=== PATIENT | female | born 1960 | race Hispanic/Latino ===

== ENCOUNTER 2018-05-27 13:38 | Emergency (ER) | payer OTHER ==
[2018-05-27] MEDS ORDERED: LIDOCAINE HCL 1% 20 ML VIAL ONE (14:17)
[2018-05-27] MEDS ORDERED: TETANUS/DIPHTHERIA TOXOID [ADULT] 0.5 ML VIAL IM ONE (14:18)
== END 2018-05-27 15:14 | disposition home or self-care (01) ==
LOC: EDH 13:38
DX: S61.011A Laceration without foreign body of right thumb without damage to nail, initial encounter (principal); E11.9 Type 2 diabetes mellitus without complications; E78.5 Hyperlipidemia, unspecified; I10 Essential (primary) hypertension; Z79.4 Long term (current) use of insulin; W26.8XXA Contact with other sharp object(s), not elsewhere classified, initial encounter; Y93.89 Activity, other specified; Y92.098 Other place in other non-institutional residence as the place of occurrence of the external cause; Y99.8 Other external cause status
CPT/HCPCS: 12042; 73130; 90471; 90714

== ENCOUNTER 2021-10-26 16:07 | Inpatient (IN) | payer OTHER ==
[~2021-10-26] VITALS: Ht 152.4 cm; Wt 49.0 kg
[~2021-10-26 16:07] MED LIST: AMOX-427 PO
[2021-10-26] MEDS ORDERED: 0.9%NACL 1000ML 1,000 ML IV ONE (16:30)
[2021-10-26 16:49] LABS: APPEARANCE,URINE CLEAR (CLEAR); BILIRUBIN,URINE NEGATIVE (NEGATIVE); COLOR,URINE YELLOW (YELLOW); GLUCOSE, URINE (UA) >=1000 mg/dL (NEGATIVE); KETONES,URINE NEGATIVE (NEGATIVE); LEUKOCYTE ESTERASE ,URINE NEGATIVE (NEGATIVE); NITRATE,URINE NEGATIVE (NEGATIVE); OCCULT BLOOD,URINE SMALL (NEGATIVE); PH,URINE 6.5 (5.0-8.0); PROTEIN,URINE 30 mg/dL (NEGATIVE)
[2021-10-26 16:58] LABS: BASOPHILS % (AUTO) 0.4 % (0.0-5.0); EOSINOPHILS % (AUTO) 2.3 % (0.0-8.0); HEMATOCRIT 29.7 % (36-48); LYMPHOCYTES % (AUTO) 11.9 % (21.0-51.0); MEAN CORPUSCULAR HEMOGLOBIN 27.6 pg (27.0-33.0); MEAN CORPUSCULAR VOLUME 83.7 fL (79-99); MONOCYTES % (AUTO) 6.7 % (3.0-13.0); NEUTROPHILS % (AUTO) 77.8 % (40.0-77.0); PLATELET COUNT (AUTO) 478 K/uL (130-400); RED BLOOD CELL COUNT(AUTO) 3.55 MIL/uL (4.00-5.50); RED CELL DISTRIBUTION WIDTH 11.9 % (11.0-15.5); WHITE BLOOD COUNT (AUTO) 9.1 K/uL (4.8-10.8)
[2021-10-26 17:16] LABS: BACTERIA,URINE Few /HPF (None Seen); WBC,URINE 0-1 /HPF (0-1)
[2021-10-26 17:18] LABS: SQUAMOUS EPITHELIAL CELL,UR Few /HPF (0-2); YEAST,URINE BUDDING Few /HPF (None Seen)
[2021-10-26 17:23] LABS: ALBUMIN 2.5 g/dL (3.5-5.0); CREATININE 0.6 mg/dL (0.5-1.5); POTASSIUM 3.9 mmol/L (3.5-5.1); TOTAL PROTEIN, SERUM 8.2 g/dL (6.0-8.3)
[2021-10-26] MEDS ORDERED: VANCOMYCIN KIT 1 GM/250 ML IV.KIT IV ONE (17:30)
[2021-10-26] MEDS ORDERED: INSULIN HUMULIN R 100 UNIT/ML 3ML IV ONE (17:30)
[2021-10-26] MEDS ORDERED: ZOSYN 3.375GM +NS 50ML IV ONE (17:30)
[2021-10-26 18:05] LABS: ERYTHROCYTE SEDIMENTATION RATE 138 MM/HR (0-30)
[2021-10-26] MEDS ORDERED: ATOR40TA69 PO (18:51)
[2021-10-26] MEDS ORDERED: ASPI-1005 PO (18:51)
[2021-10-26] MEDS ORDERED: LISI10TA24 PO (18:51)
[2021-10-26] MEDS ORDERED: GLIP10TA9 PO (18:51)
[2021-10-26] MEDS ORDERED: SITA1TAB6 PO (18:52)
[2021-10-26] MEDS ORDERED: NITROGLYCERIN 0.4 MG SL TAB SL PRN (20:30)
[2021-10-26] MEDS ORDERED: VANCOMYCIN PROTOCOL PER PHARMACY IV PRN (20:30)
[2021-10-26] MEDS ORDERED: ONDANSETRON 4MG INJ IV PRN (20:30)
[2021-10-26] MEDS: VANCOMYCIN 750MG VIAL IVPB SCH ×2 (20:30→20:31)
[2021-10-26] MEDS: 0.9% NACL 250ML 250 ML IV SCH (20:31)
[2021-10-26] MEDS: 0.9%NACL 1000ML 1,000 ML IV SCH (21:13)
[2021-10-26] MEDS: FAMOTIDINE 20MG TAB PO SCH (21:13)
[2021-10-26 22:01] VITALS: BP 154/89
[2021-10-26 22:14] LABS: INR 0.95 (0.85-1.15); PROTHROMBIN TIME 10.4 SEC (9.6-11.6)
[2021-10-26 22:16] LABS: PARTIAL THROMBOPLASTIN TIME 29.7 SEC (26.3-35.5)
[2021-10-26] MEDS: LISINOPRIL 10 MG TABLET PO SCH (23:29)
[2021-10-27] VITALS (20 sets, daily range): BP systolic 130–170; BP diastolic 62–86
[2021-10-27] MEDS ORDERED: LIDOCAINE HCL 1% 20 ML VIAL INJ ONE
[2021-10-27] MEDS: VANCOMYCIN 750MG VIAL IVPB SCH ×2 (04:18→18:56)
[2021-10-27 04:23] LABS: BASOPHILS % (AUTO) 0.3 % (0.0-5.0); HEMATOCRIT 24.9 % (36-48); LYMPHOCYTES % (AUTO) 18.5 % (21.0-51.0); MEAN CORPUSCULAR HEMOGLOBIN 27.5 pg (27.0-33.0); MEAN CORPUSCULAR HGB CONC 33.3 g/dL (32.0-36.0); MEAN CORPUSCULAR VOLUME 82.5 fL (79-99); MONOCYTES % (AUTO) 7.8 % (3.0-13.0); NEUTROPHILS % (AUTO) 68.7 % (40.0-77.0); PLATELET COUNT (AUTO) 416 K/uL (130-400); RED BLOOD CELL COUNT(AUTO) 3.02 MIL/uL (4.00-5.50); RED CELL DISTRIBUTION WIDTH 12.1 % (11.0-15.5); WHITE BLOOD COUNT (AUTO) 9.4 K/uL (4.8-10.8)
[2021-10-27 04:26] LABS: % IRON SATURATION 29.3 % (22-44)
[2021-10-27 04:31] LABS: ALBUMIN 1.9 g/dL (3.5-5.0); ASPARTATE AMINOTRANSFERASE 15 U/L (10-37); CARBON DIOXIDE 30 mmol/L (21-32); CHLORIDE 99 mmol/L (101-111); CREATININE 0.5 mg/dL (0.5-1.5); GLOMERULAR FILTR. RATE CALC 134 mL/min (>60); GLUCOSE,RANDOM 290 mg/dL (70-105); POTASSIUM 3.8 mmol/L (3.5-5.1); SODIUM SERUM 133 mmol/L (136-145); TOTAL PROTEIN, SERUM 6.4 g/dL (6.0-8.3); UREA NITROGEN, BLOOD 8 mg/dL (7-18)
[2021-10-27 04:35] LABS: ALANINE AMINOTRANSFERASE < 6 U/L (12-78)
[2021-10-27] MEDS: 0.9%NACL 1000ML 1,000 ML IV SCH ×2 (06:30→18:22)
[2021-10-27] MEDS: ACETAMINOPHEN 325 MG TAB PO PRN ×2 (06:30→21:50)
[2021-10-27] MEDS: ZOSYN 3.375GM+NS 50ML 50 ML IV SCH ×3 (06:50→21:34)
[2021-10-27] MEDS: INSULIN HUMULIN R 100 UNIT/ML 3ML SQ SCH ×4 (07:18→21:43)
[2021-10-27] MEDS ORDERED: DEXTROSE 50%-WATER 50 ML DISP.SYRIN IV PRN (07:30)
[2021-10-27] MEDS ORDERED: GLUCAGON 1MG KIT 1 MG ML IM PRN (07:30)
[2021-10-27] MEDS: FAMOTIDINE 20MG TAB PO SCH ×2 (09:00→21:00)
[2021-10-27] MEDS: ENOXAPARIN SODIUM 30 MG/0.3 ML SQ SCH (09:00)
[2021-10-27] MEDS: LISINOPRIL 10 MG TABLET PO SCH (09:15)
[2021-10-27] MEDS: AMLODIPINE 5 MG TAB PO SCH ×2 (10:11→21:34)
[2021-10-27] MEDS ORDERED: MIDAZOLAM HCL 1 MG/ML 2ML VIAL ONE (15:41)
[2021-10-27] MEDS ORDERED: PROPOFOL 10 MG/ML 20ML VIAL IV ONE (15:41)
[2021-10-27] MEDS ORDERED: FENTANYL CITRATE PF 50 MCG/1 ML 2ML VIAL ONE ×2 (15:41→17:13)
[2021-10-27] MEDS ORDERED: PHENYLEPHRINE HCL 10 MG/ML 1ML VIAL IV ONE (15:42)
[2021-10-27] MEDS ORDERED: BUPIVACAINE/PF 0.5% 30ML VIAL ONE (16:46)
[2021-10-27] MEDS ORDERED: LIDOCAINE HCL 1% 10 ML VIAL ONE (16:46)
[2021-10-27] MEDS ORDERED: LIDOCAINE HCL-MPF 2% 5ML VIAL INJ ONE (17:12)
[2021-10-27] MEDS ORDERED: BUPIVACAINE/EPI/PF 0.25% 30ML VIAL IJ ONE ×2 (17:12)
[2021-10-28 00:28] VITALS: BP 145/79
[2021-10-28 04:14] VITALS: BP 128/72
[2021-10-28] MEDS: ZOSYN 3.375GM+NS 50ML 50 ML IV SCH ×3 (05:41→22:05)
[2021-10-28] MEDS: VANCOMYCIN 750MG VIAL IVPB SCH ×2 (05:41→17:23)
[2021-10-28] MEDS: 0.9% NACL 250ML 250 ML IV SCH ×2 (05:41→17:23)
[2021-10-28] MEDS: INSULIN HUMULIN R 100 UNIT/ML 3ML SQ SCH ×4 (05:44→22:10)
[2021-10-28 08:24] VITALS: BP 113/63
[2021-10-28] MEDS: AMLODIPINE 5 MG TAB PO SCH ×2 (09:19→22:05)
[2021-10-28] MEDS: ENOXAPARIN SODIUM 30 MG/0.3 ML SQ SCH (09:19)
[2021-10-28] MEDS: LISINOPRIL 10 MG TABLET PO SCH (09:19)
[2021-10-28] MEDS: FAMOTIDINE 20MG TAB PO SCH ×2 (09:21→21:00)
[2021-10-28] MEDS: ACETAMINOPHEN 325 MG TAB PO PRN ×2 (09:42→14:21)
[2021-10-28 10:33] LABS: BASOPHILS % (AUTO) 0.6 % (0.0-5.0); EOSINOPHILS % (AUTO) 2.3 % (0.0-8.0); HEMATOCRIT 24.2 % (36-48); LYMPHOCYTES % (AUTO) 14.8 % (21.0-51.0); MEAN CORPUSCULAR HEMOGLOBIN 27.9 pg (27.0-33.0); MEAN CORPUSCULAR HGB CONC 33.1 g/dL (32.0-36.0); MEAN CORPUSCULAR VOLUME 84.3 fL (79-99); MONOCYTES % (AUTO) 7.5 % (3.0-13.0); NEUTROPHILS % (AUTO) 74.2 % (40.0-77.0); PLATELET COUNT (AUTO) 434 K/uL (130-400); RED BLOOD CELL COUNT(AUTO) 2.87 MIL/uL (4.00-5.50); WHITE BLOOD COUNT (AUTO) 6.8 K/uL (4.8-10.8)
[2021-10-28 10:47] LABS: ALBUMIN 1.9 g/dL (3.5-5.0); CREATININE 0.5 mg/dL (0.5-1.5); POTASSIUM 3.1 mmol/L (3.5-5.1); TOTAL PROTEIN, SERUM 6.4 g/dL (6.0-8.3)
[2021-10-28 12:00] VITALS: BP 135/77
[2021-10-28 16:00] VITALS: BP 136/76
[2021-10-28 21:03] VITALS: BP 130/70
[2021-10-29] MEDS ORDERED: HYDROXYZINE 25 MG TABLET ONE (00:18)
[2021-10-29] MEDS ORDERED: ACETAMINOPHEN WITH CODEINE 1 TAB TAB ONE (00:18)
[2021-10-29 00:29] VITALS: BP 126/69
[2021-10-29] MEDS ORDERED: HYDROXYZINE 25 MG TABLET PO PRN (00:30)
[2021-10-29] MEDS ORDERED: ACETAMINOPHEN WITH CODEINE 1 TAB TAB PO ONE (00:30)
[2021-10-29 04:35] VITALS: BP 125/69
[2021-10-29] MEDS: 0.9% NACL 250ML 250 ML IV SCH ×2 (05:30→17:23)
[2021-10-29] MEDS: INSULIN HUMULIN R 100 UNIT/ML 3ML SQ SCH ×4 (06:09→21:36)
[2021-10-29] MEDS: VANCOMYCIN 750MG VIAL IVPB SCH ×2 (06:10→17:23)
[2021-10-29] MEDS: ZOSYN 3.375GM+NS 50ML 50 ML IV SCH ×3 (06:10→21:30)
[2021-10-29] MEDS ORDERED: KCL 20 MEQ ERTAB PO ONE (07:47)
[2021-10-29 08:00] VITALS: BP 152/80
[2021-10-29] MEDS ORDERED: KCL 20 MEQ ERTAB PO SCH (08:00)
[2021-10-29] MEDS: LISINOPRIL 10 MG TABLET PO SCH (08:11)
[2021-10-29] MEDS: AMLODIPINE 5 MG TAB PO SCH ×2 (08:11→21:29)
[2021-10-29] MEDS: ENOXAPARIN SODIUM 30 MG/0.3 ML SQ SCH (08:12)
[2021-10-29] MEDS: FAMOTIDINE 20MG TAB PO SCH ×2 (08:22→21:30)
[2021-10-29 11:59] VITALS: BP 158/87
[2021-10-29 13:00] LABS: HEMATOCRIT 26.6 % (36-48); MEAN CORPUSCULAR HEMOGLOBIN 27.7 pg (27.0-33.0); MEAN CORPUSCULAR HGB CONC 33.5 g/dL (32.0-36.0); MEAN CORPUSCULAR VOLUME 82.9 fL (79-99); RED BLOOD CELL COUNT(AUTO) 3.21 MIL/uL (4.00-5.50); RED CELL DISTRIBUTION WIDTH 12.1 % (11.0-15.5); WHITE BLOOD COUNT (AUTO) 6.3 K/uL (4.8-10.8)
[2021-10-29 13:12] LABS: CREATININE 0.8 mg/dL (0.5-1.5); POTASSIUM 4.7 mmol/L (3.5-5.1)
[2021-10-29 16:00] VITALS: BP 130/70
[2021-10-29] MEDS: ACETAMINOPHEN WITH CODEINE 1 TAB TAB PO PRN (18:00)
[2021-10-29] MEDS ORDERED: PHARMACY COMMUNICATION MISC SCH (19:00)
[2021-10-29] MEDS ORDERED: HYDROXYZINE 25 MG TABLET PO ONE (19:30)
[2021-10-29 20:00] VITALS: BP 124/66
[2021-10-29] MEDS: INSULIN GLARGINE 100 UNITS/ML 10 ML VIAL SQ SCH (21:37)
[2021-10-30] VITALS: BP 104/62
[2021-10-30 04:00] VITALS: BP 154/86
[2021-10-30 04:46] LABS: EOSINOPHILS % (AUTO) 3.7 % (0.0-8.0); HEMATOCRIT 29.9 % (36-48); LYMPHOCYTES % (AUTO) 22.1 % (21.0-51.0); MEAN CORPUSCULAR HEMOGLOBIN 27.3 pg (27.0-33.0); MEAN CORPUSCULAR HGB CONC 32.4 g/dL (32.0-36.0); MEAN CORPUSCULAR VOLUME 84.2 fL (79-99); MONOCYTES % (AUTO) 10.5 % (3.0-13.0); NEUTROPHILS % (AUTO) 62.1 % (40.0-77.0); PLATELET COUNT (AUTO) 583 K/uL (130-400); RED BLOOD CELL COUNT(AUTO) 3.55 MIL/uL (4.00-5.50); RED CELL DISTRIBUTION WIDTH 12.4 % (11.0-15.5); WHITE BLOOD COUNT (AUTO) 6.8 K/uL (4.8-10.8)
[2021-10-30 05:00] LABS: ALBUMIN 2.5 g/dL (3.5-5.0); CREATININE 0.5 mg/dL (0.5-1.5); CRP QUANTITATIVE 18.6 mg/L (0.00-9.0); POTASSIUM 4.3 mmol/L (3.5-5.1); TOTAL PROTEIN, SERUM 7.6 g/dL (6.0-8.3)
[2021-10-30] MEDS: INSULIN HUMULIN R 100 UNIT/ML 3ML SQ SCH ×4 (05:08→21:00)
[2021-10-30] MEDS: ZOSYN 3.375GM+NS 50ML 50 ML IV SCH ×3 (05:10→21:33)
[2021-10-30 05:48] LABS: ERYTHROCYTE SEDIMENTATION RATE 110 MM/HR (0-30)
[2021-10-30 07:10] VITALS: BP 140/81
[2021-10-30] MEDS: INSULIN GLARGINE 100 UNITS/ML 10 ML VIAL SQ SCH (07:57)
[2021-10-30] MEDS: LISINOPRIL 10 MG TABLET PO SCH (08:44)
[2021-10-30] MEDS: AMLODIPINE 5 MG TAB PO SCH ×2 (08:44→21:33)
[2021-10-30] MEDS: FAMOTIDINE 20MG TAB PO SCH ×2 (08:45→21:33)
[2021-10-30] MEDS: ACETAMINOPHEN WITH CODEINE 1 TAB TAB PO PRN ×2 (08:45→16:55)
[2021-10-30] MEDS: SILVER SULFADIAZINE CREAM 50 GM TP SCH (08:45)
[2021-10-30] MEDS: ENOXAPARIN SODIUM 30 MG/0.3 ML SQ SCH (08:46)
[2021-10-30 11:10] VITALS: BP 149/71
[2021-10-30] MEDS ORDERED: SILVER SULFADIAZINE CREAM 400 GM TP SCH (12:00)
[2021-10-30] MEDS: ACETAMINOPHEN 325 MG TAB PO PRN (12:12)
[2021-10-30 15:15] VITALS: BP 126/70
[2021-10-30 20:00] VITALS: BP 141/77
[2021-10-31] VITALS: BP 116/64
[2021-10-31] MEDS: ACETAMINOPHEN WITH CODEINE 1 TAB TAB PO PRN ×2 (00:11→11:51)
[2021-10-31 04:00] VITALS: BP 110/72
[2021-10-31] MEDS: ZOSYN 3.375GM+NS 50ML 50 ML IV SCH (05:03)
[2021-10-31] MEDS: INSULIN HUMULIN R 100 UNIT/ML 3ML SQ SCH ×4 (05:59→11:46)
[2021-10-31 06:37] LABS: BASOPHILS % (AUTO) 0.8 % (0.0-5.0); EOSINOPHILS % (AUTO) 6.7 % (0.0-8.0); HEMATOCRIT 27.5 % (36-48); LYMPHOCYTES % (AUTO) 27.7 % (21.0-51.0); MEAN CORPUSCULAR HEMOGLOBIN 27.2 pg (27.0-33.0); MEAN CORPUSCULAR HGB CONC 32.4 g/dL (32.0-36.0); MEAN CORPUSCULAR VOLUME 84.1 fL (79-99); MONOCYTES % (AUTO) 10.6 % (3.0-13.0); NEUTROPHILS % (AUTO) 53.8 % (40.0-77.0); PLATELET COUNT (AUTO) 549 K/uL (130-400); RED BLOOD CELL COUNT(AUTO) 3.27 MIL/uL (4.00-5.50); RED CELL DISTRIBUTION WIDTH 12.5 % (11.0-15.5); WHITE BLOOD COUNT (AUTO) 5.1 K/uL (4.8-10.8)
[2021-10-31 06:51] LABS: ALBUMIN 2.3 g/dL (3.5-5.0); CREATININE 0.5 mg/dL (0.5-1.5); CRP QUANTITATIVE 10.1 mg/L (0.00-9.0); POTASSIUM 3.6 mmol/L (3.5-5.1)
[2021-10-31 07:58] LABS: ERYTHROCYTE SEDIMENTATION RATE 140 MM/HR (0-30)
[2021-10-31 08:00] VITALS: BP 147/86
[2021-10-31] MEDS: LISINOPRIL 10 MG TABLET PO SCH (08:53)
[2021-10-31] MEDS: FAMOTIDINE 20MG TAB PO SCH (08:53)
[2021-10-31] MEDS: AMLODIPINE 5 MG TAB PO SCH (08:53)
[2021-10-31] MEDS: ENOXAPARIN SODIUM 30 MG/0.3 ML SQ SCH (08:54)
[2021-10-31] MEDS ORDERED: INSULIN GLARGINE 100 UNITS/ML 10 ML VIAL SQ SCH (09:00)
[2021-10-31] MEDS: SILVER SULFADIAZINE CREAM 50 GM TP SCH (09:02)
[2021-10-31] MEDS ORDERED: CEPH500B PO (10:31)
[2021-10-31] MEDS ORDERED: LEVO-70 PO (10:31)
[2021-10-31 12:00] VITALS: BP 158/79
[2021-10-31] MEDS ORDERED: SILVER SULFADIAZINE CREAM 400 GM TP SCH (14:38)
== END 2021-10-31 15:00 | disposition home or self-care (01) | DRG 623 ==
LOC: EDH 16:07 → EDHIP 16:08 → 4AH 22:01
PROVIDERS: ADMIT Internal Medicine; ATTEND Internal Medicine
PROC: 0JBR0ZZ Excision of Left Foot Subcutaneous Tissue and Fascia, Open Approach (ICD-10-PCS; principal; 2021-10-27 14:20)
DX: E11.621 Type 2 diabetes mellitus with foot ulcer (principal); E46 Unspecified protein-calorie malnutrition; L02.612 Cutaneous abscess of left foot; Z20.822 Contact with and (suspected) exposure to COVID-19; L03.116 Cellulitis of left lower limb; D64.9 Anemia, unspecified; E11.42 Type 2 diabetes mellitus with diabetic polyneuropathy; E11.65 Type 2 diabetes mellitus with hyperglycemia; E78.00 Pure hypercholesterolemia, unspecified; F32.A Depression, unspecified; I10 Essential (primary) hypertension; L97.529 Non-pressure chronic ulcer of other part of left foot with unspecified severity; Z79.4 Long term (current) use of insulin; Z82.49 Family history of ischemic heart disease and other diseases of the circulatory system; Z87.442 Personal history of urinary calculi; Z89.519 Acquired absence of unspecified leg below knee; Z90.710 Acquired absence of both cervix and uterus; Z91.11 Patient's noncompliance with dietary regimen; Z91.19 Patient's noncompliance with other medical treatment and regimen; Z68.21 Body mass index [BMI] 21.0-21.9, adult
CPT/HCPCS: 36415; 73630; 73718; 80048; 80053; 80202; 81001; 82010; 82728; 82948; 83036; 83540; 83550; 83605; 83735; 84145; 85025; 85027; 85610; 85651; 85730; 86140; 87040; 87070; 87076; 87077; 87186; 87205; 87635; 93926; 97039; G0378; J1650; J1815; J2250; J2370; J2543; J2704; J3010; J3370; J3490; J7030; J7050